=== PATIENT | male | born 1970 | race Caucasian/White ===

== ENCOUNTER 2020-12-09 19:02 | Emergency (ER) | payer MEDICAID ==
[~2020-12-09] VITALS: Ht 180.3 cm; Wt 87.7 kg
[2020-12-09 19:33] LABS: BASOPHILS % (AUTO) 1 % (0-1); EOSINOPHILS % (AUTO) 4 % (1-7); LYMPHOCYTES % (AUTO) 26 % (22-44); MEAN CORPUSCULAR HEMOGLOBIN 31.8 pg (27.5-34.5); MEAN CORPUSCULAR HGB CONC 33.2 g/dL (33.2-36.2); MONOCYTES % (AUTO) 8 % (2-9); NEUTROPHILS % (AUTO) 61 % (42-75); PLATELET COUNT 238 x10^3/uL (130-400); RED BLOOD COUNT 5.08 x10^6/uL (4.38-5.82); RED CELL DISTRIBUTION WIDTH 13.1 % (9.4-14.8)
[2020-12-09 19:34] LABS: MD NO
[2020-12-09 19:44] LABS: ANION GAP 4 mmol/L (5-15); CALCIUM 8.1 mg/dL (8.5-10.1); CHLORIDE 109 mmol/L (98-107)
[2020-12-09 19:45] LABS: CREATININE 1.08 mg/dL (0.7-1.3)
[2020-12-09 22:23] VITALS: BP 120/82
[2020-12-09] MEDS ORDERED: SULFAMETH./TRIMETHOPRIM DS 800MG/160MG TABLET ONE (22:53)
[2020-12-09] MEDS ORDERED: CEFDINIR 300 MG CAPSULE ONE (22:53)
[2020-12-09] MEDS ORDERED: SULFAMETH./TRIMETHOPRIM DS 800MG/160MG TABLET PO ONE (23:00)
[2020-12-09] MEDS ORDERED: CEFDINIR 300 MG CAPSULE PO ONE (23:00)
--- NOTE | 2020-12-09 23:39 | NUR ---
Patient given discharge instructions and they have confirmed that they understand the instructions. Patient ambulatory with steady gait.
== END 2020-12-09 23:40 | disposition home or self-care (01) ==
LOC: ED 19:32
DX: L03.011 Cellulitis of right finger (principal); Z48.01 Encounter for change or removal of surgical wound dressing; F17.200 Nicotine dependence, unspecified, uncomplicated
CPT/HCPCS: 36415; 80048; 85025; 99284

== ENCOUNTER 2021-02-18 22:17 | Emergency (ER) | payer MEDICAID ==
[~2021-02-18] VITALS: Ht 180.3 cm; Wt 79.6 kg
[2021-02-18 22:42] VITALS: BP 112/77
--- NOTE | 2021-02-18 23:23 | NUR ---
PT TO US FROM TRIAGE, NOT IN ROOM AT THIS TIME
--- NOTE | 2021-02-18 23:40 | NUR ---
PT IN ROOM AT THIS TIME
[2021-02-18 23:49] LABS: BASOPHILS % (AUTO) 1 % (0-1); EOSINOPHILS % (AUTO) 4 % (1-7); LYMPHOCYTES % (AUTO) 18 % (22-44); MEAN CORPUSCULAR HEMOGLOBIN 32.1 pg (27.5-34.5); MEAN CORPUSCULAR HGB CONC 33.3 g/dL (33.2-36.2); MEAN PLATELET VOLUME 8.2 fL (7.4-10.4); MONOCYTES % (AUTO) 6 % (2-9); NEUTROPHILS % (AUTO) 71 % (42-75); PLATELET COUNT 238 x10^3/uL (130-400); RED BLOOD COUNT 4.86 x10^6/uL (4.38-5.82); RED CELL DISTRIBUTION WIDTH 13.6 % (9.4-14.8)
[2021-02-18 23:56] LABS: ALBUMIN 3.6 g/dL (3.4-5.0); ANION GAP 3 mmol/L (5-15); CALCIUM 8.7 mg/dL (8.5-10.1); CHLORIDE 107 mmol/L (98-107); CREATININE 1.09 mg/dL (0.7-1.3)
[2021-02-19] MEDS ORDERED: HYDROcodone/APAP 5/325 TABLET PO ONE (00:30)
[2021-02-19] MEDS ORDERED: IBUPROFEN 600 MG TABLET PO ONE (00:30)
[2021-02-19] MEDS ORDERED: IBUPROFEN 600 MG TABLET ONE (00:32)
[2021-02-19] MEDS ORDERED: HYDROcodone/APAP 5/325 TABLET ONE (00:32)
== END 2021-02-19 02:11 | disposition home or self-care (01) ==
LOC: ED 23:00
DX: S62.320A Displaced fracture of shaft of second metacarpal bone, right hand, initial encounter for closed fracture (principal); M79.602 Pain in left arm; X58.XXXA Exposure to other specified factors, initial encounter; Y93.89 Activity, other specified; Y92.009 Unspecified place in unspecified non-institutional (private) residence as the place of occurrence of the external cause; Y99.8 Other external cause status
CPT/HCPCS: 29105; 36415; 80048; 82040; 85025; 99285